=== PATIENT | male | born 1980 | race Caucasian/White ===

== ENCOUNTER 2017-09-23 19:22 | Emergency (ER) | payer BC ==
[~2017-09-23] VITALS: Ht 180.3 cm; Wt 100.8 kg
[2017-09-23 19:22] VITALS: TEMP 37.3; Ht 180.3 cm; Wt 100.8 kg
[2017-09-23] MEDS ORDERED: MoRPHine SULFATE 4 MG/ML 1 ML CARP\\VIAL IV STA (19:35)
[2017-09-23] MEDS ORDERED: SODIUM CHLORIDE 0.9% 1000ML 2,000 ML IV STA (19:35)
[2017-09-23] MEDS ORDERED: AMPICILLIN/SULBACTAM SOD INJ 3,000 MG in SODIUM CHLORIDE 0.9% 100ML 100 ML IV STA (19:35)
[2017-09-23] MEDS ORDERED: KETOROLAC TROMETHAMINE 30 MG/ML VIAL IV STA (19:35)
[2017-09-23] MEDS ORDERED: CIPRO 0.3%/DEXAMETHASONE 0.1% OTIC SUSP 7.5ML OTL STA (19:42)
[2017-09-23] MEDS ORDERED: DEXAMETHASONE **PF** INJ 10 MG/ML VIAL IV ONE (19:45)
[2017-09-23 19:48] LABS: BASO % 0.5 %; BASO ABS # 0.06 K/uL (0-0.2); EOS % 2.4 %; EOS ABS # 0.29 K/uL (0-0.5); HEMATOCRIT 45.7 % (42-52); HEMOGLOBIN 16.3 g/dL (14.0-18.0); IG# 0.04 K/uL (0.00-0.02); LYMPH % 25.8 %; LYMPH ABS # 3.15 K/uL (1.2-3.4); MEAN CELL VOLUME 86.2 fL (80-100); MEAN CORPUSCULAR HEMOGLOBIN 30.8 pg (25-34); MEAN CORPUSCULAR HGB CONC 35.7 g/dl (32-36); MONO % 7.4 %; MONO ABS # 0.91 K/uL (0.11-0.59); NEUT % 63.6 %; NEUT ABS # 7.78 K/uL (1.4-6.5); PLATELET COUNT 268 K/uL (130-400); RED CELL DISTRIBUTION WIDTH CV 13.1 % (11.5-14.5); RED CELL DISTRIBUTION WIDTH SD 41.9 fL (36.4-46.3); WHITE BLOOD COUNT 12.23 K/uL (4.8-10.8)
--- NOTE | 2017-09-23 19:51 | EMERGENCY ROOM VISIT NOTE ---
History Report prepared by Sherin: Serena Sanchez Under the Supervision of: Dr. Derick Krueger M.D. First contact with patient: 19:25 Stated Complaint: HEAD & EAR ACHE History of Present Illness The patient is a 37 year old male who presents to the Emergency Room with complaints of a constant headache and left ear pain beginning last night. The patient reports taking Aleve with no relief. He reports some intermittent nausea and a runny nose and feverishness/chills but denies any objective fevers , vomiting, body aches, or cough. The patient is not a smoker. He has a history of seasonal allergies. The patient was at the ED in [place] 2 hours [employer] and was put on Amoxicillin. The patient states he took one dose but reports since being seen his pain has worsened. The patient is allergic to bactrim Source of History: patient Onset: last night Position: head Quality: ache Associated Symptoms: + headache, + nausea, No fevers, No chills, No cough, No vomiting Review of Systems See HPI for pertinent positives and negatives. A total of ten systems were reviewed and were otherwise negative. Past Medical & Surgical Medical Problems: (1) Seasonal allergies Family History Patient reports no known family medical history. Social History Smoking Status: Never Smoker Smokeless Tobacco Use: No Marital Status: single Current/Historical Medications Scheduled Amoxicillin & Pot Clavulanate (Augmentin 875-125 mg), 875 MG PO BID Cholecalciferol (Vitamin D3 Ultra Strength), 5,000 UNITS PO DAILY Ciprofloxacin/Dexamethasone (Ciprodex 0.3-0.1 %), 4 DROPS OT BID Milk Thistle (Silybum Marianum (Milk Thistle Extract), Unknown Dose PO DAILY Mometasone Furoate (Inhalation (Asmanex 30 Metered Doses), 1 PUFF INH QPM Triamcinolone Acetonide (Nasal (Nasacort Allergy 24Hr), 1 SPRAY GALINDO QPM Scheduled PRN Ibuprofen Tab (Motrin), 800 MG PO Q8H PRN for Pain Loratadine (Claritin), 10 MG PO DAILY PRN for Allergic Reaction Oxycodone Ir (Roxicodone Ir), 1-2 TAB PO Q4H PRN for Severe Pain Allergies Coded Allergies: Benzocaine (Verified Allergy, Intermediate, HIVES, 09/23/17) Sulfamethoxazole w/Trimethoprim (Verified Allergy, Unknown, + TEST, 09/23/17 ) Uncoded Allergies: LAZARO (Adverse Reaction, Intermediate, CONGESTION, 09/23/17) EGG WHITES (Adverse Reaction, Unknown, UNKNOWN, 09/23/17) Physical Exam Vital Signs Date Time Temp Pulse Resp B/P (MAP) Pulse Ox O2 Delivery O2 Flow Rate FiO2 09/23/17 21:56 79 18 140/84 96 Room Air 09/23/17 20:32 87 18 156/95 96 Room Air 09/23/17 19:22 37.3 82 16 177/66 97 Room Air Physical Exam GENERAL: Awake, alert, fatigued and uncomfortable-appearing, in no distress HENT: Normocephalic, atraumatic. Left AC edematous with serous discharge, unable to visualize TM due to erythema, no preauricular or postauricular/ mastoid tenderness, edema or erythema. Oropharynx unremarkable. Dry MM. EYES: Normal conjunctiva. Sclera non-icteric. NECK: Supple. No nuchal rigidity. FROM. No JVD. RESPIRATORY: Clear to auscultation. CARDIAC: Regular rate, normal rhythm. Extremities warm and well perfused. Pulses equal. ABDOMEN: Soft, non-distended. No tenderness to palpation. No rebound or guarding. No masses. RECTAL: Deferred. MUSCULOSKELETAL: Chest examination reveals no tenderness. The back is symmetrical on inspection without obvious abnormality. There is no CVA tenderness to palpation. No joint edema. LOWER EXTREMITIES: Calves are equal size bilaterally and non-tender. No edema. No discoloration. NEURO: Normal sensorium. No sensory or motor deficits noted. SKIN: No rash or jaundice noted. Medical Decision & Procedures Laboratory Results 09/23/17 19:30 Red Blood Count 5.30, Mean Corpuscular Volume 86.2, Mean Corpuscular Hemoglobin 30.8, Mean Corpuscular Hemoglobin Concent 35.7, Mean Platelet Volume 10.0, Neutrophils (%) (Auto) 63.6, Lymphocytes (%) (Auto) 25.8, Monocytes (%) (Auto) 7.4, Eosinophils (%) (Auto) 2.4, Basophils (%) (Auto) 0.5, Neutrophils # (Auto) 7.78, Lymphocytes # (Auto) 3.15, Monocytes # (Auto) 0.91, Eosinophils # (Auto) 0.29, Basophils # (Auto) 0.06 09/23/17 19:30 Test 09/23/17 19:30 White Blood Count 12.23 K/uL (4.8-10.8) Red Blood Count 5.30 M/uL (4.7-6.1) Hemoglobin 16.3 g/dL (14.0-18.0) Hematocrit 45.7 % (42-52) Mean Corpuscular Volume 86.2 fL (80-100) Mean Corpuscular Hemoglobin 30.8 pg (25-34) Mean Corpuscular Hemoglobin Concent 35.7 g/dl (32-36) Platelet Count 268 K/uL (130-400) Mean Platelet Volume 10.0 fL (7.4-10.4) Neutrophils (%) (Auto) 63.6 % Lymphocytes (%) (Auto) 25.8 % Monocytes (%) (Auto) 7.4 % Eosinophils (%) (Auto) 2.4 % Basophils (%) (Auto) 0.5 % Neutrophils # (Auto) 7.78 K/uL (1.4-6.5) Lymphocytes # (Auto) 3.15 K/uL (1.2-3.4) Monocytes # (Auto) 0.91 K/uL (0.11-0.59) Eosinophils # (Auto) 0.29 K/uL (0-0.5) Basophils # (Auto) 0.06 K/uL (0-0.2) RDW Standard Deviation 41.9 fL (36.4-46.3) RDW Coefficient of Variation 13.1 % (11.5-14.5) Immature Granulocyte % (Auto) 0.3 % Immature Granulocyte # (Auto) 0.04 K/uL (0.00-0.02) Anion Gap 3.0 mmol/L (3-11) Est Creatinine Clear Calc Drug Dose 117.6 ml/min Estimated GFR () 106.3 Estimated GFR (Non- 91.7 BUN/Creatinine Ratio 12.6 (10-20) Calcium Level 8.8 mg/dl (8.5-10.1) Total Bilirubin 0.3 mg/dl (0.2-1) Direct Bilirubin 0.1 mg/dl (0-0.2) Aspartate Amino Transf (AST/SGOT) 13 U/L (15-37) Alanine Aminotransferase (ALT/SGPT) 60 U/L (12-78) Alkaline Phosphatase 87 U/L (45-117) Total Protein 7.9 gm/dl (6.4-8.2) Albumin 3.9 gm/dl (3.4-5.0) Lipase 169 U/L (73-393) Laboratory results reviewed by me Medications Administered Medications (Trade) Dose Ordered Sig/Starr Route Start Time Stop Time Status Last Admin Dose Admin Sodium Chloride 2,000 ml @ 999 mls/hr Q2H1M STAT IV 09/23/17 19:35 09/23/17 21:35 DC 09/23/17 19:49 999 MLS/HR Dexamethasone Sodium Phosphate (Dexamethasone Inj Pf) 10 mg NOW ONCE IV 09/23/17 19:45 09/23/17 19:46 DC 09/23/17 19:49 10 MG Ketorolac Tromethamine (Toradol Inj) 15 mg NOW STAT IV 09/23/17 19:35 09/23/17 19:41 DC 09/23/17 19:49 15 MG Morphine Sulfate (MoRPHine SULFATE INJ) 4 mg NOW STAT IV 09/23/17 19:35 09/23/17 19:41 DC 09/23/17 19:48 4 MG Ampicillin Sodium/ Sulbactam Sodium 3000 mg/Sodium Chloride 108 ml @ 200 mls/hr ONE STAT IV 09/23/17 19:35 09/23/17 20:07 DC 09/23/17 20:20 200 MLS/HR Ciprofloxacin/ Dexamethasone (Ciprodex Otic Susp) 2 drops NOW STAT OTL 09/23/17 19:42 09/23/17 19:47 DC 09/23/17 20:20 2 DROPS Oxycodone HCl (Roxicodone Immediate Rel 5MG Home Pack) 1 homepack UD ONCE PO 09/23/17 21:45 09/23/17 21:46 DC 09/23/17 21:52 1 HOMEPACK Amoxicillin/ Clavulanate Potassium (Augmentin Tab) 875 mg NOW STAT PO 09/23/17 21:38 09/23/17 21:40 DC 09/23/17 21:51 1,750 MG ED Course 1932: The patient was evaluated in room B5. A complete history and physical exam was performed. 2017: I discussed the patient with Dr. Freeman. She agrees with the treatment plan and will follow up with the patient on Monday. 2040: I reevaluated the patient. Discussed results and discharge instructions: He verbalized understanding and agreement. The patient is ready for discharge. Medical Decision I reviewed the patient's past medical history, medications, and the nursing notes as described above. Differential diagnoses include: Otitis media, otitis externa, malignant otitis externa, mastoiditis, among others. The patient is a 37 y/o gentleman who presents to the emergency department with worsening left ear pain that began yesterday seen at outside hospital ED 2 hours prior to arrival and treated with course of amoxicillin per hpi. Rep On arrival the patient is uncomfortable but in no acute distress, afebrile stable vital signs. On exam the patient has edematous left EAC with serous discharge. EAC too edematous to visualize TM. No pre or post-auricular edema, erythema, warmth, or ttp. WBC 12.2 nonspecific but consistent with the patient's infection. Chemistry unremarkable without evidence of acidosis. Patient feeling improved after IVF, dexamethasone, toradol. Given IV dose of Unasyn given systemic sx and possible additional OM in addition to Ciprodex otic. Case d/w Dr. Andres, ENT on-call, who agrees with plan for prompt outpatient f/u. Recs for Ciprodex with wick. Patient to call office early Monday for appointment. Will continue oral ABX as well given patient's systemic sx prior to arrival. Findings and plan for follow-up reviewed with patient. Patient agreeable and d/c'd per discharge instructions. Medication Reconcilliation Current Medication List: was personally reviewed by me Blood Pressure Screening Patient's blood pressure: Elevated blood pressure Blood pressure disposition: Elevated BP felt to be situational Consults Time Called: 2009 Consulting Physician: Dr. Freeman Returned Call: 2016 I discussed the patient with Dr. Freeman. Agrees with the treatment plan and will follow up with the patient on Monday. Impression Primary Impression: Otitis externa Additional Impression: Otitis media Scribe Attestation The scribe's documentation has been prepared under my direction and personally reviewed by me in its entirety. I confirm that the note above accurately reflects all work, treatment, procedures, and medical decision making performed by me. Departure Information Dispostion Home / Self-Care Prescriptions Oxycodone Ir (Roxicodone Ir) 5 Mg Tab 1-2 TAB PO Q4H Y for Severe Pain, #10 TAB Prov: Derick Krueger M.D. 09/23/17 Ibuprofen Tab (MOTRIN) 800 Mg Tab 800 MG PO Q8H Y for Pain for 7 Days, #21 TAB Prov: Derick Krueger M.D. 09/23/17 Amoxicillin & Pot Clavulanate (Augmentin 875-125 mg) 1 Tab Tab 875 MG PO BID for 7 Days, #20 TAB Prov: Derick Krueger M.D. 09/23/17 Ciprofloxacin/Dexamethasone (Ciprodex 0.3-0.1 %) 112 Drops/7.5 Ml Susp 4 DROPS OT BID for 5 Days, #7.5 ML Prov: Derick Krueger M.D. 09/23/17 Referrals Franc Andres M.D. Forms HOME CARE DOCUMENTATION FORM, IMPORTANT VISIT INFORMATION, WORK / SCHOOL INSTRUCTIONS Patient Instructions ED Otitis Externa, ED Otitis Media Acute Adult, [facility] Additional Instructions Please follow up with ENT, Dr. Andres, on Monday for re-evaluation on Monday/ Monday. You have an external and possible internal ear infection. Otherwise, your exam and lab results did not show signs of an emergent condition at this time. Acetaminophen or ibuprofen for pain and fevers as needed. Ciprodex eardrops as directed. Augmentin oral antibiotic as directed. Oxycodone for breakthrough pain as needed. Drink plenty of fluids to ensure hydration. Return to the emergency department for worsening symptoms as described in the accompanying instructions. Work Instructions Return To Work: after follow-up Problem Qualifiers
[2017-09-23 20:07] LABS: ALBUMIN 3.9 gm/dl (3.4-5.0); CALCIUM 8.8 mg/dl (8.5-10.1); CREATININE 1.03 mg/dl (0.60-1.40); POTASSIUM 3.8 mmol/L (3.5-5.1)
[2017-09-23] MEDS ORDERED: MOME110A INH (20:09)
[2017-09-23 20:10] LABS: TOTAL PROTEIN 7.9 gm/dl (6.4-8.2)
[2017-09-23] MEDS ORDERED: TRIA1SPR4 NAE (20:11)
[2017-09-23] MEDS ORDERED: CLR10 PO (20:11)
[2017-09-23] MEDS ORDERED: MILK140C2 PO (20:13)
[2017-09-23] MEDS ORDERED: CHOL500015 PO (20:14)
[2017-09-23] MEDS ORDERED: OXYC1TAB3 PO (21:36)
[2017-09-23] MEDS ORDERED: CPRDOTS OT (21:36)
[2017-09-23] MEDS ORDERED: IBUP-1451 PO (21:36)
[2017-09-23] MEDS ORDERED: AMOX875T PO (21:36)
[2017-09-23] MEDS ORDERED: AMOXICILLIN/CLAVULANATE TAB 875 MG TAB PO STA (21:38)
[2017-09-23] MEDS ORDERED: OXYCODONE IR HOME PACK PO ONE (21:45)
[2017-09-23] MEDS ORDERED: EMPTY 8 DRAM VIAL ONE (21:49)
[2017-09-23 21:56] VITALS: BP 140/84; PULSE 79; O2SAT 96
== END 2017-09-23 22:00 | disposition home or self-care (01) ==
LOC: EDBD 19:22 → C.EDB 19:24
DX: H60.92 Unspecified otitis externa, left ear (principal); H66.92 Otitis media, unspecified, left ear; R51 Headache; R11.0 Nausea; Z91.09 Other allergy status, other than to drugs and biological substances; Z91.012 Allergy to eggs; Z91.018 Allergy to other foods